=== PATIENT | female | born 1965 | race Caucasian/White ===

== ENCOUNTER 2020-05-20 10:22 | Outpatient (REF) | payer MEDICAID, SELFPAY | END 2020-05-20 10:23 | disposition home or self-care (01) | LOC: HO.LAB 10:22 | PROVIDERS: Visit Provider Internal Medicine | DX: Z20.822 Contact with and (suspected) exposure to COVID-19 (principal) | CPT/HCPCS: 36415; C9803; U0003; U0005 ==

== ENCOUNTER 2020-05-29 10:08 | Outpatient (REF) | payer MEDICAID, SELFPAY | END 2020-05-29 10:09 | disposition home or self-care (01) | LOC: HO.LAB 10:08 | PROVIDERS: Visit Provider Internal Medicine | DX: Z20.822 Contact with and (suspected) exposure to COVID-19 (principal) | CPT/HCPCS: 36415; C9803; U0003; U0005 ==

== ENCOUNTER 2020-07-16 09:00 | Outpatient (RCR) | payer MEDICAID, SELFPAY | END 2020-07-31 08:00 | disposition home or self-care (01) | LOC: HO.PT 09:00 | PROVIDERS: PCP Registered Nurse; Visit Provider Registered Nurse | DX: R42 Dizziness and giddiness (principal) | CPT/HCPCS: 95992; 97110; 97112; 97162; 97530; 97535 ==

== ENCOUNTER 2020-08-28 10:12 | Emergency (ER) | payer MEDICAID, SELFPAY ==
--- NOTE | 2020-08-28 | ECG_ITS ---
Test Reason : DIZZINESS Blood Pressure : / mmHG Vent. Rate : 100 BPM Atrial Rate : 100 BPM P-R Int : 118 ms QRS Dur : 076 ms QT Int : 320 ms P-R-T Axes : 052 001 -01 degrees QTc Int : 412 ms Normal sinus rhythm Normal ECG No previous ECGs available Referred By: Generic ED Physician Electronically Signed By:LG OG MD
[2020-08-28 11:03] VITALS: BP 132/105; PULSE 110; RESP 18; TEMP 36.6; O2SAT 100; BMI 31.3
[2020-08-28 12:00] VITALS: BP 116/83; PULSE 98; RESP 18; TEMP 36.6; O2SAT 100
--- NOTE | 2020-08-28 12:05 | ED_ITS ---
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 Patient states that the dizziness is triggered by position change. She states that the dizziness is worse when she lies down or if she looks up returns her head. She states she has associated nausea with no vomiting. She has also had a headache for the last 3 days. The headache starts in the septal area of her head and radiates to the right sabianism. The headache is a throbbing like sensation which is 7/10 at its worst. She has had similar headaches in the past. She has associated nausea but no vomiting. She has associated photophobia and phonophobia. She denies numbness or weakness. Related Data Previous Rx's Medication Instructions Recorded hydrochlorothiazide 25 mg PO DAILY 30 Days #30 tab 08/28/20 metoclopramide HCl [Reglan] 10 mg PO Q6H PRN #14 tab 08/28/20 Allergies Allergy/AdvReac Type Severity Reaction Status Date / Time No Known Allergies Allergy Verified 08/28/20 12:02 [facility] Past Medical History [facility] Narrative: Past medical history: Hypertension, hyperlipidemia, vertigo. Social history: She denies tobacco, alcohol and drug use. Social History Social History Alcohol intake: never Smoking Status: Never smoker Use of substances other than those prescribed or required for medical reasons: No Advance Directives: Yes Advance Directives Information Provided: Yes Advance Directives on File: No Physical Exam Vital Signs: Vital Signs: Last Vital Signs Temp 97.8 F 08/28/20 12:00 Pulse 80 08/28/20 13:22 Resp 16 08/28/20 13:22 BP 127/78 08/28/20 13:22 Pulse Ox 98 08/28/20 13:22 Body Mass Index 31.3 Const: General: cooperative Orientation/consciousness: oriented to person and oriented to place Limitations: no limitations HENMT: Head: Yes normal to inspection, Yes normocephalic and Yes atraumatic Ears: external ears normal General nose exam: Normal external nose present Face and sinus: Yes normal facial exam Mouth: Normal oral and palatal mucosa present Throat: Yes posterior oropharynx normal Eyes: Periorbital: periorbital findings normal Eyelids: Yes eyelids normal Conjunctivae: conjunctivae normal Sclerae: sclerae normal Corneas: corneas normal Pupils: Equal, round and reactive pupils present EOM: Nystagmus present Direct Ophthalmoscopy: normal light reflex Neck: Neck: Yes full ROM, Yes no lymphadenopathy, Yes no meningeal signs, Yes trachea midline and Yes supple Chest: Chest palpation & inspection: normal inspection of the chest and normal palpation of entire chest wall Resp: Effort & Inspection: normal respiratory effort and able to speak in complete sentences Auscultation: clear to auscultation bilaterally Cardio: Rate: regular rate Rhythm: regular rhythm Heart sounds: S1 normal heart sound present, S2 normal heart sound present and no murmurs GI: Inspection: Yes normal to inspection Palpation (GI): Soft to palpation, nontender, no guarding, not rigid and No hepatosplenomegaly present : General: Yes no CVA tenderness Back/Spine/Pelvis: Back: no CVA tenderness Cervical Spine: normal cervical lordosis Thoracic/Lumbar Spine: thoracic and lumbar spine normal to inspection Skin: Lesions: no lesions Rashes: no rashes Wounds: no wounds Neuro: General: oriented to person, oriented to place and no meningeal signs Cranial nerves: Yes CN's II-XII intact bilaterally, Yes Equal, round and reactive pupils present and Yes Nystagmus present Cognition (Neuro): normal cognition Motor exam (neuro): 5/5 motor strength present throughout Coordination: gshtuo-yv-hexm test normal and vloh-qz-zmux test normal Extrem: General: Yes normal to inspection and Yes full ROM Psych: Appearance: well kempt Mental Status: mental status grossly normal Speech and movement: Normal speech and movement present Affect: normal affect Attitude: cooperative Thought process: Normal thought process present Thought content: Normal thought content present Course Course Course Narrative: 54-year-old female with a history of vertigo who presents emergency department for evaluation of room spinning dizziness times 10 days. The patient also complains a right-sided headache. Patient has been taking meclizine for vertigo with no relief for symptoms. Vital signs revealed an elevated tachycardia 110 , elevated blood pressure of 132/105 otherwise was unremarkable. Physical examination revealed lateral nystagmus otherwise was unremarkable with a normal neurologic and cerebellar exam. Did order laboratory evaluation the patient. Patient's symptoms were treated with Toradol 30 mg IV, Reglan 10 mg IV and Benadryl 50 mg IV. 1510: The patient's laboratory evaluation was unremarkable. Twelve EKG reveals sinus tachycardia otherwise was unremarkable. The patient did get significant improvement with the above treatment. The patient dizziness is consistent with positional vertigo which is not responding to meclizine. Therefore, the patient will be started on hydrochlorothiazide 25 mg once a day for 30 days to treat her vertigo. She was also given headache regimen to include: Excedrin migraine 1 tablet, Benadryl 25 mg 2 tablets and Reglan 10 mg 1 tablet. She is to take this regimen every 6 hours as needed for headache, nausea and vomiting. She was given printed and verbal instructions and discharged home. MDM - Dizziness Lab Data Result diagrams: 08/28/20 12:05 08/28/20 13:21 Labs: Lab Results 08/28/20 08/28/20 08/28/20 Range/Units 12:05 12:05 12:05 WBC 5.7 (4.8-10.8) X10*3/uL RBC 4.65 (4.20-5.50) X10*6/uL Hgb 13.7 (12.0-16.0) g/dl Hct 41.6 (37-47) % MCV 89.5 (80-98) fL MCH 29.5 (27.0-33.0) pg MCHC 32.9 (31.0-35.0) g/dl RDW 12.4 (11.0-16.0) % Plt Count Not Reportable MPV Not Reportable Immature Gran % (Auto) 0.3 (0.0-0.4) % Neut % (Auto) 77.2 H (45-73) % Lymph % (Auto) 13.1 L (20-40) % Emanuel % (Auto) 8.6 (2-11) % Eos % (Auto) 0.5 (0-4) % Baso % (Auto) 0.3 (0-2) % Lymph # (Auto) 0.8 L (1.2-4.9) X10*3/uL Emanuel # (Auto) 0.5 (0.1-1.2) X10*3/uL Eos # (Auto) 0.0 (0.0-0.4) X10*3/uL Baso # (Auto) 0.0 (0.0-0.2) X10*3/uL Abs Immat Gran (auto) 0.02 (0.00-0.03) X10*3/uL Absolute Neuts (auto) 4.4 (2.0-8.3) X10*3/uL Absolute Nucleated RBC 0.000 (0.0-0.012) X10*3/uL Nucleated RBC % (auto) 0.0 (0.0-0.2) /100WBC Smear Tech's Comments VERIFIED Hold Blue Top SEE NOTE Sodium (135-145) mmol/L Potassium (3.3-5.1) mmol/L Chloride (96-108) mmol/L Carbon Dioxide (22-29) mmol/L Anion Gap (12-20) BUN (9-16) mg/dL Creatinine (0.5-1.4) mg/dL Estim Creat Clear Calc Estimated GFR Random Glucose (60-115) mg/dL Calcium (8.4-10.2) mg/dL Urine Color STRAW Urine Appearance CLEAR Urine pH 5.5 (5.0-8.0) Ur Specific [place] 1.010 (1.005-1.025) Urine Protein NEG (NEG-TRACE) MG/DL Urine Glucose (UA) NEG (NEG) MG/DL Urine Ketones NEG (NEG) MG/DL Urine Blood NEG (NEG) Urine Nitrite NEG (NEG) Ur Leukocyte Esterase NEG (NEG) 05/20/21 Range/Units 13:21 WBC (4.8-10.8) X10*3/uL RBC (4.20-5.50) X10*6/uL Hgb (12.0-16.0) g/dl Hct (37-47) % MCV (80-98) fL MCH (27.0-33.0) pg MCHC (31.0-35.0) g/dl RDW (11.0-16.0) % Plt Count MPV Immature Gran % (Auto) (0.0-0.4) % Neut % (Auto) (45-73) % Lymph % (Auto) (20-40) % Emanuel % (Auto) (2-11) % Eos % (Auto) (0-4) % Baso % (Auto) (0-2) % Lymph # (Auto) (1.2-4.9) X10*3/uL Emanuel # (Auto) (0.1-1.2) X10*3/uL Eos # (Auto) (0.0-0.4) X10*3/uL Baso # (Auto) (0.0-0.2) X10*3/uL Abs Immat Gran (auto) (0.00-0.03) X10*3/uL Absolute Neuts (auto) (2.0-8.3) X10*3/uL Absolute Nucleated RBC (0.0-0.012) X10*3/uL Nucleated RBC % (auto) (0.0-0.2) /100WBC Smear Tech's Comments Hold Blue Top Sodium 141 (135-145) mmol/L Potassium 3.8 (3.3-5.1) mmol/L Chloride 109 H (96-108) mmol/L Carbon Dioxide 23 (22-29) mmol/L Anion Gap 13 (12-20) BUN 15 (9-16) mg/dL Creatinine 0.78 (0.5-1.4) mg/dL Estim Creat Clear Calc 81.7 Estimated GFR > 60 Random Glucose 81 (60-115) mg/dL Calcium 9.2 (8.4-10.2) mg/dL Urine Color Urine Appearance Urine pH (5.0-8.0) Ur Specific [place] (1.005-1.025) Urine Protein (NEG-TRACE) MG/DL Urine Glucose (UA) (NEG) MG/DL Urine Ketones (NEG) MG/DL Urine Blood (NEG) Urine Nitrite (NEG) Ur Leukocyte Esterase (NEG) ECG Data Attestation: I personally reviewed and interpreted this ECG as follows: Interpretation: 1205: Sinus tachycardia with a rate of 100, normal MD interval, QRS and QTC intervals, inverted T-wave in lead [address] segment elevation or depression. No Q-waves. This is a normal EKG. No old EKG for comparison Discharge Plan Discharge Clinical Impression: Benign paroxysmal positional vertigo Qualifiers: Laterality: unspecified laterality Qualified Code(s): H81.10 - Benign p aroxysmal vertigo, unspecified ear Headache Qualifiers: Headache type: unspecified Headache chronicity pattern: acute headache Intractability: not intractable Qualified Code(s): R51.9 - Headache, unspecified Patient Disposition: Home, Self-Care Instructions: Acute Headache (ED), Benign Paroxysmal Positional Vertigo (ED) Additional Instructions: I am going to treat your vertigo with hydrochlorothiazide which is a water pill and high blood pressure pill that helps with vertigo. Take hydrochlorothiazide 25 mg pills, 1 pill in the morning for 30 days. You can continue to take your meclizine as needed for dizziness while you are taking the hydrochlorothiazide. For headache, nausea and vomiting I want you to take the following 3 medications together every 6 hours. Excedrin migraine, 1 pill orally Benadryl 25 mg, 2 pills orally Reglan (metoclopramide) 10 mg, 1 pill orally These medications will make you sleepy, lie down in a dark quiet room after take pain medications and this will help your headache and nausea go away. Follow-up with your doctor in 2 days. Please return to the emergency department if your symptoms get worse or if you develop any symptoms that are concerning to you. Prescriptions: New hydrochlorothiazide 25 mg tablet 25 mg PO DAILY 30 Days Qty: 30 RF: 0 metoclopramide HCl [Reglan] 10 mg tablet 10 mg PO Q6H PRN (Reason: nausea and vomiting) Qty: 14 RF: 0 Interventions: ED Discharge Assessment Last Done: 08/28/20 15:28 Discharge Date/Time: 08/28/20 15:29
[2020-08-28] MEDS: 0.9 % Sodium Chloride 1,000 ML 999 ML IV (12:17)
[2020-08-28] MEDS: Metoclopramide HCl 10 MG/2 ML VIAL IVPUSH (12:19)
[2020-08-28] MEDS: diphenhydrAMINE HCL 50 MG/ML VIAL IVPUSH (12:19)
[2020-08-28] MEDS: Ketorolac Tromethamine 30 MG/ML VIAL IVPUSH (12:19)
[2020-08-28 12:21] LABS: Basophils Percent Auto 0.3 % (0-2); Hemoglobin 13.7 g/dl (12.0-16.0); Imm Gran Abs Auto 0.02 X10*3/uL (0.00-0.03); Imm Gran Pct Auto 0.3 % (0.0-0.4); MANUAL DIFF FLAG SCAN; Mean Corpuscular Hemoglobin 29.5 pg (27.0-33.0); PLT CLUMP 1; SCAN SMEAR FLAG 1
[2020-08-28 12:23] LABS: Eosinophils Percent Auto 0.5 % (0-4); Hematocrit 41.6 % (37-47); Lymphocytes Absolute Auto 0.8 X10*3/uL (1.2-4.9); Lymphocytes Percent Auto 13.1 % (20-40); Mean Corpuscular HGB Conc 32.9 g/dl (31.0-35.0); Mean Corpuscular Volume 89.5 fL (80-98); Monocytes Absolute Auto 0.5 X10*3/uL (0.1-1.2); Monocytes Percent Auto 8.6 % (2-11); Neutrophils Absolute Auto 4.4 X10*3/uL (2.0-8.3); Neutrophils Percent Auto 77.2 % (45-73); Red Blood Count 4.65 X10*6/uL (4.20-5.50); Red Cell Distribution Width 12.4 % (11.0-16.0); White Blood Count 5.7 X10*3/uL (4.8-10.8)
[2020-08-28 12:25] LABS: Glucose Urine UA NEG (NEG); Leukocyte Esterase Urine NEG (NEG); Nitrite Urine NEG (NEG); PH 5.5 (5.0-8.0); Urine Blood NEG (NEG); Urine Ketones NEG (NEG); Urine Protein NEG (NEG-TRACE)
[2020-08-28 12:27] LABS: Appearance Urine CLEAR; Color Urine STRAW
[2020-08-28 13:00] LABS: SLIDE REVIEW VERIFIED
[2020-08-28 13:22] VITALS: BP 127/78; PULSE 80; RESP 16; O2SAT 98
[2020-08-28 13:54] LABS: Anion Gap 13 (12-20); Blood Urea Nitrogen 15 mg/dL (9-16); Calcium 9.2 mg/dL (8.4-10.2); Carbon Dioxide 23 mmol/L (22-29); Chloride 109 mmol/L (96-108); Creatinine Clr Calc Pharmacy 81.7; Estimated Glomerular Filt Rate > 60; Glucose Random 81 mg/dL (60-115); Potassium 3.8 mmol/L (3.3-5.1); Sodium 141 mmol/L (135-145)
== END 2020-08-28 15:29 | disposition home or self-care (01) ==
PROVIDERS: Emergency Provider Emergency Medicine Emergency Medical Services
DX: H81.10 Benign paroxysmal vertigo, unspecified ear (principal); R51.9 Headache, unspecified
CPT/HCPCS: 36415; 80048; 81003; 85025; 93005; 96361; 96374; 96375; 99284; 99285; J1200; J1885; J2765

== ENCOUNTER 2021-05-14 11:47 | Outpatient (REF) | payer MEDICAID, SELFPAY ==
--- NOTE | ~2021-05-14 | MM_ITS ---
EXAMINATION: MM SCREENING DIGITAL BREAST TOMOSYNTHESIS, BILATERAL CLINICAL INFORMATION: Screening. Asymptomatic. The lifetime risk of breast cancer based on the Tyrer-Cuzick Model is 8.2%. COMPARISON: Mammography: December 19, 2018 and studies dating back to July 14, 2013 TECHNIQUE: Digital breast tomosynthesis is performed in both the craniocaudal and mediolateral oblique views along with computer-aided detection (CAD). Synthesized 2D images are generated from the tomosynthesis. FINDINGS: There are scattered areas of fibroglandular density (ACR BI-RADS breast composition Category b). There are no significant masses, abnormal calcifications, or other abnormalities. MM/MM tomosynthesis screening BI IMPRESSION: There are no significant changes from prior study. ASSESSMENT: BI-RADS 1: Negative RECOMMENDATION: Routine annual mammography screening. This patient's information was entered into a reminder system with a target due date for their next mammogram.
== END 2021-05-14 11:48 | disposition home or self-care (01) ==
LOC: HO.MAMMO 11:47
PROVIDERS: PCP Nurse Practitioner Family; Visit Provider Nurse Practitioner Family
DX: Z12.31 Encounter for screening mammogram for malignant neoplasm of breast (principal)
CPT/HCPCS: 77063; 77067

== ENCOUNTER 2021-07-13 08:34 | Outpatient (REF) | payer MEDICAID, SELFPAY ==
--- NOTE | ~2021-07-13 | MR_ITS ---
EXAMINATION: MR BRAIN WITHOUT CONTRAST CLINICAL INFORMATION: Chronic imbalance. Vertigo. COMPARISON: None available. TECHNIQUE: MRI of the brain was obtained using routine sequences without contrast. FINDINGS: No focal restricted diffusion is demonstrated to suggest acute or subacute cerebral ischemia. No evidence of acute or chronic hemorrhagic products on heme-sensitive imaging. Normal parenchymal signal characteristics. The ventricles are normal in morphology and size. No abnormal mass effect. No midline shift. Normal appearance of the pituitary gland. Normal positioning of the cerebellar tonsils. Normal arterial and venous vascular flow voids are present. Normal, homogeneous marrow signal. Mild mucosal thickening of the paranasal sinuses. No signal abnormalities within the mastoids. MR/MR head/brain wo con IMPRESSION: 1. No acute intracranial abnormalities. 2. No MRI abnormalities to explain the patient's symptoms.
== END 2021-07-13 08:35 | disposition home or self-care (01) ==
LOC: HO.MRI 08:34
PROVIDERS: Visit Provider Nurse Practitioner Family
DX: R26.89 Other abnormalities of gait and mobility (principal); R42 Dizziness and giddiness
CPT/HCPCS: 70551

== ENCOUNTER 2021-12-17 10:16 | Emergency (ER) | payer MEDICAID, SELFPAY ==
[2021-12-17 10:36] VITALS: BP 138/75; PULSE 100; RESP 19; TEMP 36.6; O2SAT 100; BMI 28.3
--- NOTE | 2021-12-17 11:01 | ED_ITS ---
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 Patient states that her ear has been hurting for the last week. Patient states that she has not been swimming, has not traveled lately, and does not have diabetes. Patient denies any dizziness, lightheadedness, abdominal pain, nausea, vomiting, fever, chills, blurry vision, double vision, loss of vision, chest pain, difficulty breathing, shortness of breath, back pain, night sweats, pain with urination, increased urinary frequency, increased urinary urgency, blood in her urine or stool, syncope or a near syncopal episode, recent trauma or falls, bowel incontinence, bladder incontinence, bowel retention, bladder retention, or any other complaints at this time. Onset (ago): week(s) (1) Location: right (ear) Radiation: non-radiation Severity: mild Severity scale (1-10): 2 Pain Consistency: constant Relieving factors: none Exacerbating factors: none Associated symptoms: denies other symptoms Treatments prior to arrival: none Related Data Previous Rx's Medication Instructions Recorded hydrochlorothiazide 25 mg tablet 25 mg PO DAILY 30 days #30 tabs 08/28/20 metoclopramide HCl 10 mg tablet 10 mg PO Q6H PRN nausea and 08/28/20 (Reglan) vomiting #14 tabs fluconazole 150 mg tablet 150 mg PO Q3D 2 doses #2 tabs 12/17/21 (Diflucan) [id number] 3.5 4 drp otic (ear) right QID 10 days 12/17/21 mg-10,000 unit/mL-1 % ear #10 mL drops,susp Allergies Allergy/AdvReac Type Severity Reaction Status Date / Time No Known Allergies Allergy Verified 08/28/20 12:02 Review of Systems Constitutional: Constitutional: Reports no additional constitutional complaints, Denies chills, Denies fever(s) and Denies night sweats Eyes: Eyes: Reports no additional eye complaints, Denies blurry vision, Denies change in vision, Denies diplopia, Denies eye discharge, Denies loss of vision and Denies eye pain ENT: Denies dizziness Comments: right ear pain Cardiovascular: Cardiovascular: Reports no additional cardiovascular complaints, Denies chest pain, Denies lightheadedness, Denies Loss of Consciousness and Denies dyspnea Respiratory: Respiratory: Reports no additional respiratory complaints and Denies dyspnea Gastrointestinal: Gastrointestinal: Reports no additional gastrointestinal complaints, Denies abdominal pain, Denies melena, Denies hematochezia, Denies change in bowel habits and Denies change in stool character Genitourinary: Genitourinary: Denies hematuria, Denies urinary frequency, Denies dysuria, Denies urinary incontinence, Denies urinary hesitancy and Denies urinary urgency Musculoskeletal: Musculoskeletal: Reports no additional musculoskeletal complaints, Denies numbness and Denies tingling Neurologic: Denies dizziness, Denies loss of vision, Denies numbness and Denies tingling Psychiatric: Psychiatric: Reports no additional psychiatric complaints Endocrine: Endocrine: Reports no additional endocrine complaints Hematologic/Lymphatic: Hematologic/Lymphatic: Reports no additional hematologic/lymphatic complaints Allergic/Immunologic: Allergic/Immunologic: Reports no additional allergic/immunologic complaints [facility] Past Medical History Attestation statement: The following information was validated with the patient. Source: old records reviewed Social History Social History Alcohol intake: never Advance Directives: No Advance Directives Information Provided: No Physical Exam ED Vital Signs: Vital Signs - 24 hr 12/17/21 10:36 Temperature 98 F Pulse Rate 100 Respiratory Rate 19 Blood Pressure 138/75 Pulse Oximetry 100 Oxygen Delivery Method Room Air BMI result Body Mass Index 28.3 Const General: cooperative, no acute distress, alert and awake Nutritional Appearance: well nourished Orientation/consciousness: patient oriented x3 Limitations: no limitations [facility] Head: Yes normal to inspection and Yes atraumatic Ears: hearing grossly normal bilaterally and Abnormal EAC present otic discharge purulent on the right General nose exam: Normal external nose present, no nasal discharge noted and no epistaxis Face and sinus: Yes normal facial exam, No abrasion and No laceration Mouth: Normal oral and palatal mucosa present, no drooling and no muffled voice Eyes General: appearance normal, both eyes and all related structures Periorbital: periorbital findings normal Eyelids: Yes eyelids normal Conjunctivae: conjunctivae normal Pupils: Equal, round and reactive pupils present EOM: EOMs intact bilaterally Neck Neck: Yes normal visual inspection, Yes full ROM and Yes no lymphadenopathy Chest Chest palpation & inspection: normal inspection of the chest Resp Effort & Inspection: normal respiratory effort and able to speak in complete sentences Auscultation: clear to auscultation bilaterally Cardio Rate: regular rate Rhythm: regular rhythm GI Inspection: Yes normal to inspection Neuro General: patient oriented x3 and moves all extremities Cranial nerves: Yes Equal, round and reactive pupils present Cognition (Neuro): normal cognition Motor exam (neuro): 5/5 motor strength present throughout Sensory Exam: Normal double simultaneous stimulation for sensation Coordination: [id number] test normal Extrem General: Yes normal to inspection, Yes full ROM and Yes capillary refill normal Psych Appearance: grossly normal Mental Status: mental status grossly normal Affect: normal affect Attitude: cooperative Thought process: Normal thought process present Thought content: Normal thought content present Insight: Good insight present (Psych) Medical Decision Making MDM Narrative Medical decision making narrative: Patient is a 55 year old female presenting to the emergency department today with right ear pain. Patient's physical exam showed white discharge in her right ear canal with pain during inspection. The white discharge appeared somewhat fluffy in nature and I was some what concerned of a superimposed fungal infection. I explained my physical exam findings to the patient. I answered all questions asked by the patient. I sent in both antibiotics and antifungal medication for the patient. I stressed the importance of the patient taking her medication as prescribed. I stressed the importance of the patient following up with her primary care provider and an ENT. I stressed the importance of the patient returning to the emergency department immediately if her symptoms were to worsen or if she were to develop any dizziness, shortness of breath, difficulty breathing, chest pain, blurry vision, loss of vision, nausea, vomiting, abdominal pain, fever, chills, back pain, or any other complaints. Patient verbalized agreement and understanding with this treatment plan and discharge. Differential Diagnosis Differential Diagnosis: otitis externa Medical Records Medical records reviewed: Yes I reviewed the patient's medical records. Discharge Plan Discharge Clinical Impression: Otitis externa Patient Disposition: Home, Self-Care Instructions: Otitis Externa (ED) Additional Instructions: Follow up with your primary care provider and an ENT specialist. Return to the emergency department immediately if your symptoms worsen or if you develop any dizziness, shortness of breath, difficulty breathing, chest pain, blurry vision, loss of vision, nausea, vomiting, abdominal pain, fever, chills, back pain, or any other complaints. Zoltan un seguimiento con wang proveedor de atenci?n primaria y un otorrinolaring?logo. Regrese al departamento de emergencias de inmediato si hudson s?ntomas empeoran o si presenta mareos, falta de aire, dificultad para respirar, dolor de pecho, visi?n borrosa, p?rdida de la visi?n, n?useas, v?mitos, dolor abdominal, fiebre, escalofr?os, dolor de espalda o cualquier otras quejas. Prescriptions: New fluconazole [Diflucan] 150 mg tablet 150 mg PO Q3D Qty: 2 0RF pjkppjuv-illvmkqkr-IL 3.5-10,000-1 mg/mL-unit/mL-% drops,suspension 4 drp otic (ear) right QID 10 Days Qty: 10 0RF No Action hydrochlorothiazide 25 mg tablet 25 mg PO DAILY 30 Days Qty: 30 0RF Rx Instructions: Take for vertigo for 1 month metoclopramide HCl [Reglan] 10 mg tablet 10 mg PO Q6H PRN (Reason: nausea and vomiting) Qty: 14 0RF Referrals: Mary Cordoba [Primary Care Provider] - River Mahmood [Physician] - (Call to establish and follow up with an ENT specialist. Llame para establecer y jus seguimiento con un otorrinolaring?logo.) Interventions: ED Discharge Assessment Last Done: 12/17/21 11:24 Discharge Date/Time: 12/17/21 11:25 Print Language: [place]
== END 2021-12-17 11:25 | disposition home or self-care (01) ==
PROVIDERS: Emergency Provider Emergency Medicine Emergency Medical Services; PCP Nurse Practitioner Family
DX: H60.91 Unspecified otitis externa, right ear (principal); H92.01 Otalgia, right ear; Z79.899 Other long term (current) drug therapy
CPT/HCPCS: 99283

== ENCOUNTER 2022-12-01 19:00 | Outpatient (REF) | payer MEDICAID, SELFPAY ==
[2022-12-01 20:17] LABS: Influenza A PCR NEGATIVE (Negative); Influenza B PCR NEGATIVE (Negative); Resp Syncy Virus RNA Qual PCR NEGATIVE (Negative); SARS COV2 PCR INHOUSE NEGATIVE (Negative)
== END 2022-12-01 19:01 | disposition home or self-care (01) ==
LOC: HO.HHCL 19:00
PROVIDERS: Visit Provider Family Medicine
DX: J06.9 Acute upper respiratory infection, unspecified (principal)
CPT/HCPCS: 0241U

== ENCOUNTER 2024-02-02 09:01 | Outpatient (REF) | payer MEDICAID, SELFPAY ==
[2024-02-02 11:10] LABS: Hematocrit 44.6 % (37.0-47.0); Hemoglobin 14.6 g/dl (12.0-16.0)
[2024-02-02 11:38] LABS: Estimated Average Glucose 111 mg/dL; Hemoglobin A1C 117.2523 umol/L; Hemoglobin A1c % 5.5 % (<6.0); Total Hemoglobin (HGBA1C) 3162.1212 umol/L
[2024-02-02 11:43] LABS: Anion Gap 13 (12-20); Blood Urea Nitrogen 19 mg/dL (9-16); Calcium 10.1 mg/dL (8.4-10.2); Carbon Dioxide 27 mmol/L (22-29); Chloride 103 mmol/L (96-108); Cholesterol 228 mg/dL (<200); Estimated Glomerular Filt Rate > 60; Glucose Random 92 mg/dL (60-115); HDL Cholesterol 45 mg/dL (>40); LDL Cholesterol Calculated 162 mg/dL (<100); Potassium 3.2 mmol/L (3.3-5.1); Sodium 140 mmol/L (135-145); Triglycerides 105 mg/dL (<150)
[2024-02-02 11:49] LABS: Vitamin D 25-OH Total 63.1 ng/mL (>30)
[2024-02-02 12:13] LABS: Folate 5.3 ng/mL (> or = 4.0); Vitamin B12 353 pg/mL (200-900)
== END 2024-02-02 09:02 | disposition home or self-care (01) ==
LOC: HO.HHCL 09:01
PROVIDERS: Visit Provider Nurse Practitioner Primary Care
DX: R20.0 Anesthesia of skin (principal); R20.2 Paresthesia of skin; R79.89 Other specified abnormal findings of blood chemistry; Z13.1 Encounter for screening for diabetes mellitus; Z13.220 Encounter for screening for lipoid disorders; I10 Essential (primary) hypertension
CPT/HCPCS: 36415; 80048; 80061; 82306; 82607; 82746; 83036; 84443; 85014; 85018

== ENCOUNTER 2024-02-09 09:04 | Outpatient (REF) | payer MEDICAID, SELFPAY ==
[2024-02-09 11:36] LABS: Anion Gap 11 (12-20); Blood Urea Nitrogen 19 mg/dL (9-16); Calcium 10.4 mg/dL (8.4-10.2); Carbon Dioxide 28 mmol/L (22-29); Chloride 103 mmol/L (96-108); Estimated Glomerular Filt Rate > 60; Glucose Random 92 mg/dL (60-115); Potassium 3.1 mmol/L (3.3-5.1); Sodium 139 mmol/L (135-145)
== END 2024-02-09 09:05 | disposition home or self-care (01) ==
LOC: HO.HHCL 09:04
PROVIDERS: Visit Provider Student in an Organized Health Care Education/Training Program
DX: E87.6 Hypokalemia (principal)
CPT/HCPCS: 36415; 80048

== ENCOUNTER 2024-02-17 10:54 | Outpatient (REF) | payer MEDICAID, SELFPAY ==
[2024-02-17 13:53] LABS: Anion Gap 11 (12-20); Blood Urea Nitrogen 14 mg/dL (9-16); Calcium 9.4 mg/dL (8.4-10.2); Carbon Dioxide 28 mmol/L (22-29); Chloride 105 mmol/L (96-108); Estimated Glomerular Filt Rate > 60; Glucose Random 88 mg/dL (60-115); Potassium 3.7 mmol/L (3.3-5.1); Sodium 140 mmol/L (135-145)
== END 2024-02-17 10:55 | disposition home or self-care (01) ==
LOC: HO.HHCL 10:54
PROVIDERS: Visit Provider Nurse Practitioner Primary Care
DX: I10 Essential (primary) hypertension (principal)
CPT/HCPCS: 36415; 80048

== ENCOUNTER 2024-05-01 11:01 | Outpatient (REF) | payer MEDICAID, SELFPAY ==
--- OUTSIDE RECORDS SUMMARY | 2024-05-01 12:40 | XMS_ITS | Encounter Summary ---
Author Organization [employer] [facility] Address [address] [place] [address] 7[address] [place] [address] Care Team Providers Care History Instructor Name Role Phone Brenda Wise Primary Care Provider [phone] Reason for Referral * Imaging (Routine) - Closed Specialty Diagnoses / Procedures Referred By Jarek barrios Referred To Contact Radiology Diagnoses Encounter for screening mammogram for malignant neoplasm of breast Procedures BI Mammogram Screening Tomosynthesis Bilateral Brenda Wise FNP [address], [place] Phone: tel: fax: [facility] [address] [place] [address] Phone: tel: fax: Referral ID Status Reason Start Date Expiration Date Visits Re quested Visits Authorized [id number] Closed 04/09/2024 04/09/2025 1 1 * Consultation (Routine) - Closed Specialty Diagnoses / Procedures Referred By Jarek barrios Referred To Contact Optometry Diagnoses Wears glasses Brenda Wise FNP [address] [place] [address] Phone: tel: fax: [facility] OPTOMETRY [address] [place] [address] Phone: tel: fax: Referral ID Status Reason Start Date Expiration Date V isits Requested Visits Authorized [id number] Closed Consult and Treat 04/09/2024 04/09/2025 1 1 Encounter Details Date Type Department Care Team (Latest Contact Info) Description 04/09/2024 1:15 PM EST Office Visit [facility] MED & PED[facility] [address] [place] [address] Brenda Wise FNP [address] [place] [address] Vertigo (Primary Dx); Wears glasses; Screening for colon cancer; Encounter for screening mammogram for malignant neoplasm of breast; Healthcare maintenance; Hyperlipidemia, unspecified hyperlipidemia type; Primary hypertension Social History Tobacco Use Types Packs/Day Years Used Date Smoking Tobacco: Never Passive Smoke Exposure: Current Smokeless Tobacco: Never Alcohol Use Standard Drinks/Week Comments Never 0 (1 standard drink = 0.6 oz pur e alcohol) Depression Answer Date Recorded Patient Health Questionnaire-9 Score 6 04/09/2024 Patient Health Questionnaire-9 Score 6 04/09/2024 Last PHQ-9: Questionnaire Data Not on file 1 Housing Stability Answer Date Recorded What is your housing situation today? I have brigid rivera 04/09/[address] you li ve. Do you have problems with any of the following? None of the above 04/09/2024 Food Insecurity Answer Date Recorded Within the past 12 months, y ou worried that your food would run out before you got money to buy more: Never True 01/30/2024 Within the past 12 months,th e food you bought just didn't last and you didn't have enough money to get more: Never True Transportation Answer Date Recorded In the past 12 months, has l ack of transportation kept you from medical appts, meetings, work or from getting things needed for daily living? No 01/30/2024 Utilities Answer Date Recorded In the past 12 months, has t he electric, gas, oil or water company threatened to shut off services in your home? No 01/30/2024 Depression Answer Date Recorded Patient Health Questionnaire-2 Score 2 04/09/2024 Internet Access Answer Date Recorded Internet Access Q1 Yes 01/30/2024 Internet Access Q2 Not on file 01/30/2024 Comments Unknown Sex and Gender Information Value Date Recorded Sex Assigned at Female 02/08/2022 10:14 AM EDT Legal Sex Female 10:14 AM EDT Gender Identity Female 02/08/2022 10:14 AM EDT Sexual Orientation Straight 02/08/2022 10 :14 AM EDT documented as of this encounter Last Filed Vital Signs Vital Sign Reading Time Taken Comments Blood Pressure 139/87 04/09/2024 1:07 PM EST Pulse 100 04/09/2024 1:07 PM EST Temperature 36.5 ??C (97.7 ??F) 04/09/2024 1:07 PM ES T Respiratory Rate 26 04/09/2024 1:07 PM EST Oxygen Saturation 97% 04/09/2024 1:07 PM EST Inhaled Oxygen Concentration - - Weight 71.4 kg (157 lb 8 oz) 04/09/2024 1:07 PM EST Height 157.5 cm (5' 2 ) 04/09/2024 1:07 PM EST Body Mass Index 28.81 04/09/2024 1:07 PM EST documented in this encounter Patient Instructions * Patient Instructions* DL Godfrey - 04/09/2024 1:15 PM EST - Referral to Neurology will be placed documented in this encounter Progress Notes * DL Godfrey - 04/09/2024 1:15 PM EST Subjective: Karlene Guy is a 58 y.o. female who presents to the office for a transfer patient visit. Previous PCP Mary Cordoba APRN. Current concerns: Chronic dizziness, feeling off balance. Longstanding hx of vertigo. Previous trials include meclizine and vestibular rehab. Ms. Guy reports that neither were very helpful, but that hydrochlorothiazide does improve her symptoms. Reports that it was prescribed by the ED and she has continued over the past few years (unclear on who is currently prescribing). Associated symptoms: feeling off balance, numbness/tingling in BUE and BLE. Also reports that certain movements of her neck can elicit symptoms of dizziness as well as numbness/tingling in BUE. [facility]. Consider Neuro referral pending results. Patient Active Problem List Diagnosis Hyperlipidemia Primary hypertension Vertigo Moderate episode of recurrent major depressive disorder (CMS/HCC) LOTTIE (generalized anxiety disorder) Healthcare maintenance Past Surgical History: Procedure Laterality Date CHOLECYSTECTOMY Family History Problem Relation Alzheimer's disease Mother Hypertension Father Heart attack Father Autism Son Alzheimer's disease Mother's Sister Breast cancer Father's Sister Liver cancer Paternal Grandfather Social History Substance use: -alcohol: none -tobacco: none -opioids: none Contraception: post-menopausal Mental health: denies SI/Hi/thoughts of self harm No LMP recorded (lmp unknown). No Known Allergies Review of Systems Constitutional: Negative for activity change, appetite change and fever. Respiratory: Negative for cough and wheezing. Cardiovascular: Negative for chest pain and palpitations. Gastrointestinal: Negative for abdominal pain, constipation, diarrhea and vomiting. Genitourinary: Negative for difficulty urinating. Neurological: Positive for dizziness and numbness. Negative for facial asymmetry, speech difficulty, weakness and headaches. Psychiatric/Behavioral: Negative for suicidal ideas. Visit Vitals BP 139/87 (BP Location: Left arm, Patient Position: Sitting, BP Cuff Size: Adult) Pulse 100 Temp 97.7 ??F (36.5 ??C) (Oral) Resp 26 Ht 5' 2 (1.575 m) Wt 157 lb 8 oz (71.4 kg) LMP (LMP Unknown) SpO2 97% BMI 28.81 kg/m?? Smoking Status Never BSA 1.77 m?? Physical Exam Constitutional: Appearance: Normal appearance. HENT: Head: Atraumatic. Right Ear: External ear normal. Left Ear: External ear normal. Nose: No congestion. Eyes: Extraocular Movements: Extraocular movements intact. Cardiovascular: Rate and Rhythm: Normal rate and regular rhythm. Pulmonary: Effort: Pulmonary effort is normal. Breath sounds: Normal breath sounds. Neurological: General: No focal deficit present. Mental Status: She is alert and oriented to person, place, and time. Psychiatric: Mood and Affect: Mood normal. Behavior: Behavior normal. Problem List Items Addressed This Visit Circulatory Primary hypertension Current Assessment & Plan - Reports hydrochlorothiazide rx from outside prescriber, encouraged to bring in rx bottle next appt Other Hyperlipidemia Overview Lab Results Component Value Date CHOL 228 (H) 02/02/2024 TRIG 105 02/02/2024 HDL 45 02/02/2024 LDLCHOLCAL 162 (H) 02/02/2024 -continue lifestyle modification -rosuvastatin 5mg nightly Current Assessment & Plan -Will switch from atorvastatin to rosuvastatin. Reviewed med safety and SE. Relevant Medications rosuvastatin (Crestor) 5 MG tablet Vertigo - Primary Current Assessment & Plan - Chronic vertigo associated with additional symptoms including feeling off balance, numbness and tingling in BUE - aggravated by movement of neck. Previous head imaging completed. Will request. Nextsteps pending imaging results. May consider MRI brain and c-spine to r/o structural abnormalities or lesions such as MS. Discussed consideration of Neuro referral - ED precautions Healthcare maintenance Overview Mammo: BIRADS 1 in May 2021. Order re-sent on 04/09/24 Pap: NILM, HPV neg on 12/02/21 Colonoscopy: Declines colonoscopy but in agreement with [facility]. Order placed 04/09/24. Optometry: referral to [facility] Eye [facility] 04/09/24. List of local vision centers provided Other Visit Diagnoses Wears glasses Relevant Orders Referral to [facility] Screening for colon cancer Relevant Orders Cologuard?? colon cancer screening Encounter for screening mammogram for malignant neoplasm of breast Relevant Orders BI Mammogram Screening Tomosynthesis Bilateral Follow up: 3 months, sooner as needed. Current Outpatient Medications Medication Sig Dispense Refill cholecalciferol (Vitamin D-3) 50 MCG (1999 UT) capsule Take 1 capsule by mouth in the morning. cyclobenzaprine (Flexeril) 5 MG tablet Take 1 tab at bedtime as needed for neck pain/muscle spasm 15 tablet 0 hydrocortisone 1 % cream apply by topical route 2 times every day a thin layer to the affected area(s) on foot for 2 weeks rosuvastatin (Crestor) 5 MG tablet Take 1 tablet (5 mg) by mouth at bedtime. (Cholesterol) 90 tablet 1 No current facility-administered medications for this visit. Immunization History Administered Date(s) Administered Hep B, adult 05/08/2003 Influenza, IIV3, injectable 01/08/1999, 02/24/2001 Influenza, Split (incl. purified surface antigen) 08/24/2013 Influenza, seasonal, injectable, preservative free 01/05/2024 Moderna Covid-19 Vaccine 12+ 07/30/2020, 08/27/2020, 05/28/2021 TD (adult), 2 Lf tetanus toxoid, preservative free, adsorbed 12/10/1992, 01/30/2024 Tdap 08/31/2010 documented in this encounter Miscellaneous Notes * Assessment & Plan Note - DL Godfrey - 04/12/2024 8:19 PM ESTAssociated Problem(s): Vertigo - Chronic vertigo associated with additional symptoms including feeling off balance, numbness and tingling in BUE - aggravated by movement of neck. Previous head imaging completed. Will request. Nextsteps pending imaging results. May consider MRI brain and c-spine to r/o structural abnormalities or lesions such as MS. Discussed consideration of Neuro referral - ED precautions * Assessment & Plan Note - DL Godfrey - 04/12/2024 8:11 PM ESTAssociated Problem(s): Primary hypertension - Reports hydrochlorothiazide rx from outside prescriber, encouraged to bring in rx bottle next appt * Assessment & Plan Note - DL Godfrey - 04/12/2024 8:10 PM ESTAssociated Problem(s): Hyperlipidemia -Will switch from atorvastatin to rosuvastatin. Reviewed med safety and SE. documented in this encounter Plan of Treatment Upcoming Encounters Date Type Department Care Team (Late st Contact Info) Description 09/06/2024 1:00 PM EDT Office Visit [facility] OPTOMETRY [address] [place] [address] Cathy Dempsey, OD [address] [place] [address] Scheduled Orders Name Type Priority Associated Diagnoses Orde r Schedule Cologuard?? colon cancer screening Lab Routine Screening for colon cancer Ordered: 04/09/2024 BI Mammogram Screening Tomosynthesis Bilateral Imaging Routine Encounter for screening mammogram for malignant neoplasm of breast Expected: 04/09/2024, Expires: 06/08/2025 Scheduled Referrals Name Type Priority Associated Diagnoses Orde r Schedule Referral to [facility] Eye Care Outpatient Referral Routine Wears glasses Expected: 04/09/2024 (Approximate), Expires: 04/09/2025 documented as of this encounter Visit Diagnoses Diagnosis Vertigo- Primary Dizziness and giddiness Wears glasses Other specified conditions influencing health status Screening for colon cancer Special screening for malignant neoplasms, colon Encounter for screening mammogram for malignant neoplasm of breast Healthcare maintenance Hyperlipidemia, unspecified hyperlipidemia type Primary hypertension Unspecified essential hypertension documented in this encounter Additional Health Concerns Assessment Noted Time PHQ-9 Depression Total Score: 6 04/09/20 24 1:13 PM EST documented as of this encounter Care Teams History Instructor Relationship Specialty Start Date End Date Brenda Wise FNP [address] [place] [address] PCP - General Family Medicine 12/07/21 documented as of this encounter
--- OUTSIDE RECORDS SUMMARY | 2024-05-01 12:40 | XMS_ITS | Encounter Summary ---
Author Organization [employer] Address [address] [place] [address] Care Team Providers Care Barber Tool Sharpener Name Role Phone Brenda Wise Primary Care Provider [phone] Reason for Visit * Reason Comments Pre-visit Planning SDOH was completed o n 01/30/2024 Encounter Details Date Type Department Care Team ([facility] st Contact Info) Description 04/02/2024 Patient Outreach [facility] MED [facility] PEDS [address] [place], [place] [phone] Brenda Wise FNP [address] [place], [place] [phone] Pre-visit Planning (SDOH was completed on 01/30/2024) Social History Tobacco Use Types Packs/Day Years Used Date Smoking Tobacco: Never Passive Smoke Exposure: Current Smokeless Tobacco: Never Alcohol Use Standard Drinks/Week Comments Never 0 (1 standard drink = 0.6 oz pur e alcohol) Depression Answer Date Recorded Patient Health Questionnaire-9 Score 17 02/23/2024 Patient Health Questionnaire-9 Score 17 02/23/2024 Last PHQ-9: Questionnaire Data Not on file 1 04/24/2023 Housing Stability Answer Date Recorded What is your housing situation today? I have brigid rivera 01/30/[address] you li ve. Do you have problems with any of the following? I am not sure 01/30/2024 Food Insecurity Answer Date Recorded Within the [...] Answer Date Recorded Patient Health Questionnaire-2 Score 6 02/23/2024 Internet Access Answer Date Recorded Internet Access Q1 Yes 01/30/2024 Internet Access Q2 Not on file 01/30/2024 Comments Unknown Sex and Gender Information Value Date Recorded Sex Assigned at Female 02/08/2022 10:14 AM EDT Legal Sex Female 10:14 AM EDT Gender Identity Female 02/08/2022 10:14 AM EDT Sexual Orientation Straight 02/08/2022 10 :14 AM EDT documented as of this encounter Progress Notes * Shy Guzman - 04/02/2024 1:16 PM EST Shy Riley placed successful outbound call to patient for pre-visit planning. Patient name and confirmed. Patient confirms appt date and time, and has transportation arrangements. Biggest concernfor appointment at this time is neck muscle spasms and ear pain. Appropriate screenings completed in anticipation of appointment CC. documented in this encounter Plan of Treatment Upcoming Encounters Date Type Department Care Team (Late st Contact Info) Description 09/06/2024 1:00 PM EDT Office Visit [facility] OPTOMETRY [address] [place] [address] Ke, Cathy, OD [address] [place] [address] documented as of this encounter Visit Diagnoses Not on filedocumented in this encounter Additional Health Concerns Assessment Noted Time PHQ-9 Depression Total Score: 17 024 3:22 PM EST documented as of this encounter Care Teams Barber Tool Sharpener Relationship Specialty Start Date End Date Brenda Wise FNP [address] [place] [address] PCP - General Family Medicine 12/07/21 documented as of this encounter
--- OUTSIDE RECORDS SUMMARY | 2024-05-01 12:40 | XMS_ITS | Encounter Summary ---
Author Organization [employer] Address [address] [place] [address] Care Team Providers Care Searchlight Operator Name Role Phone Brenda Wise DL Primary Care Provider [phone] Reason for Visit * Reason Onset Date Comments Chart Prep 04/09/2024 Encounter Details Date Type Department Care Team ([facility] st Contact Info) Description 04/09/2024 Telephone [facility] MED & PEDS [address] [place], [place] [phone] Marta Malcolm MA Chart Prep Social History Tobacco Use Types Packs/Day Years [...] AM EDT documented as of this encounter Miscellaneous Notes * Telephone Encounter - Marta Sweeney MA - 04/09/2024 11:46 AM EST Chart Prep Labs: done Images: done Vaccines due: yes Referrals: pending appt Screenings: colonoscopy , mammogram , STI screening, Hep C Overdue care gaps: Sbirt documented in this encounter Plan of Treatment Upcoming Encounters Date Type Department Care Team (Late st Contact Info) Description 09/06/2024 1:00 PM EDT Office Visit [facility] OPTOMETRY [address] [place] [address] Cathy Dempsey, OD [address] [place] [address] documented as of this encounter Visit Diagnoses Not on filedocumented in this encounter Additional Health Concerns Assessment Noted Time PHQ-9 Depression Total Score: 6 04/09/20 24 1:13 PM EST documented as of this encounter Care Teams Searchlight Operator Relationship Specialty Start Date End Date Brenda Wise FNP [address] [place] [address] PCP - General Family Medicine 12/07/21 documented as of this encounter
--- OUTSIDE RECORDS SUMMARY | 2024-05-01 12:40 | XMS_ITS | Encounter Summary ---
Author Organization [employer] Address [address] [place] [address] Care Team Providers Care Shredder Operator Name Role Phone Brenda Wise DL Primary Care Provider [phone] Encounter Details Date Type Department Care Team (Latest Contact Info) Description 04/09/2024 Travel Social History Tobacco Use Types Packs/Day Years [...] AM EDT documented as of this encounter Plan of Treatment Upcoming Encounters Date Type Department Care Team (Late st Contact Info) Description 09/06/2024 1:00 PM EDT Office Visit [facility] OPTOMETRY [address] [place] [address] KeCathy flood, OD [address] [place] [address] documented as of this encounter Visit Diagnoses Not on filedocumented in this encounter Additional Health Concerns Assessment Noted Time PHQ-9 Depression Total Score: 6 04/09/20 24 1:13 PM EST documented as of this encounter Care Teams Shredder Operator Relationship Specialty Start Date End Date Brenda Wise FNP [address] [place] [address] PCP - General Family Medicine 12/07/21 documented as of this encounter
--- OUTSIDE RECORDS SUMMARY | 2024-05-01 12:40 | XMS_ITS | Encounter Summary ---
Author Organization [employer] [facility] Address [address] [facility] [address] [place] [address] Care Team Providers Care Adult Family Home Program Manager Name Role Phone Brenda Wise Primary Care Provider [phone] Reason for Visit * Reason Comments Med Refill Encounter Details Date Type Department Care Team (Late Contact Info) Description 04/19/2023 Refill [facility] MED[facility] [address] [place] [address] Brenda Wise FNP [address] [place] [address] Social History Tobacco Use Types Packs/Day Years Used Date Smoking Tobacco: Former Cigarettes Passive Smoke Exposure: Current Smokeless Tobacco: Never Alcohol Use Standard Drinks/Week Comments Never 0 (1 standard drink = 0.6 oz pur e alcohol) Comments Unknown Sex and Gender Information Value Date Recorded Sex Assigned at Female 02/08/2022 10:14 AM EDT Legal Sex Female 10:14 AM EDT Gender Identity Female 02/08/2022 10:14 AM EDT Sexual Orientation Straight 02/08/2022 10 :14 AM EDT documented as of this encounter Plan of Treatment Upcoming Encounters Date Type Department Care Team (Late Contact Info) Description 09/06/2024 1:00 PM EDT Office Visit [facility] OPTOMETRY [address] [place] [address] Ke, Cathy, OD [address] [place] [address] documented as of this encounter Visit Diagnoses Not on filedocumented in this encounter Care Teams Adult Family Home Program Manager Relationship Specialty Start Date End Date Brenda Wise FNP [address] [place] [address] PCP - General Family Medicine 12/07/21 documented as of this encounter
--- OUTSIDE RECORDS SUMMARY | 2024-05-01 12:40 | XMS_ITS | Encounter Summary ---
Author Organization [employer] Address [address] [facility] [address] [place] [address] Care Team Providers Care Grounds Restoration Specialist Name Role Phone Brenda Wise Primary Care Provider [phone] Reason for Visit * Reason Onset Date Comments triage 05/24/2022 Encounter Details Date Type Department Care Team ([facility] st Contact Info) Description 05/24/2022 Telephone [facility] MEDICINE [address] [place] [address] Brenda Wise FNP [address] [place] [address] triage Social History Tobacco Use Types Packs/Day Years Used Date Smoking Tobacco: Never Assessed Comments Unknown Sex and Gender Information Value Date Recorded Sex Assigned at Female 02/08/2022 10:14 AM EDT Legal Sex Female 10:14 AM EDT Gender Identity Female 02/08/2022 10:14 AM EDT Sexual Orientation Straight 02/08/2022 10 :14 AM EDT COVID-19 Exposure Response Date Recorded In the last 10 days, have yo u been in contact with someone who was confirmed or suspected to have Coronavirus/COVID-19? Unable to assess 05/26/2022 10:57 AM EST documented as of this encounter Miscellaneous Notes * Telephone Encounter - Alissa Morgan RN - 05/24/2022 4:27 PM EST Call returned to patient for triage. No answer LVM to return call to [facility] triage line. * Telephone Encounter - Geovanni Guzman - 05/24/2022 11:58 AM EST Symptom: Earache Outcome: Schedule an urgent appointment (within 1 hour) or talk to a nurse or provider soon Reason: Severe pain now The caller accepted this outcome speaks pashto documented in this encounter Plan of Treatment Upcoming Encounters Date Type Department Care Team (Late st Contact Info) Description 09/06/2024 1:00 PM EDT Office Visit [facility] OPTOMETRY [address] [place] [address] Cathy Dempsey, OD [address] [place] [address] documented as of this encounter Visit Diagnoses Not on filedocumented in this encounter Care Teams Grounds Restoration Specialist Relationship Specialty Start Date End Date Brenda Wise FNP [address] [place] [address] PCP - General Family Medicine 12/07/21 documented as of this encounter
--- OUTSIDE RECORDS SUMMARY | 2024-05-01 12:40 | XMS_ITS | Encounter Summary ---
Author Organization [employer] Address [address] [facility] [address] [place] [address] Care Team Providers Care Sr. Social Media & Mobile Manager Name Role Phone ArvindBrenda skinner DL Primary Care Provider [phone] Encounter Details Date Type Department Care Team ([facility] st Contact Info) Description 04/12/2024 Orders Only [place] [facility] [address] [place], [place] [phone] Provider, MD Trav Social History Tobacco Use Types Packs/Day Years [...] Description 09/06/2024 1:00 PM EDT Office Visit [facility] OPTOMETRY [address] [place] [address] Ke, Cathy, OD [address] [place] [address] documented as of this encounter Procedures Procedure Name Priority Date/Time Associated Diagnosis Comments HM MAMMOGRAPHY Routine 05/14/2021 11:34 AM EST documented in this encounter Results * Hm Mammography (05/14/2021 11:34 AM EST) Anatomical Region Laterality Modality Other Historical Provider HEALTH MAINTENANCE Final Result documented in this encounter Visit Diagnoses Not on filedocumented in this encounter Additional Health Concerns Assessment Noted Time PHQ-9 Depression Total Score: 6 04/09/20 24 1:13 PM EST documented as of this encounter Care Teams Sr. Social Media & Mobile Manager Relationship Specialty Start Date End Date Brenda Wise FNP [address] [place] [address] PCP - General Family Medicine 12/07/21 documented as of this encounter
== END 2024-05-01 11:02 | disposition home or self-care (01) ==
LOC: HO.MAMMO 11:01
PROVIDERS: PCP Registered Nurse; Visit Provider Registered Nurse
DX: Z12.31 Encounter for screening mammogram for malignant neoplasm of breast (principal)
CPT/HCPCS: 77063; 77067

== ENCOUNTER → 2024-05-01 11:15 | Outpatient (BNV) | payer MEDICAID, SELFPAY | PROVIDERS: PCP Registered Nurse; Visit Provider Internal Medicine | DX: Z12.31 Encounter for screening mammogram for malignant neoplasm of breast (principal) | CPT/HCPCS: 77063; 77067 ==

== ENCOUNTER 2024-12-27 08:48 | Outpatient (REF) | payer MEDICAID, SELFPAY ==
--- OUTSIDE RECORDS SUMMARY | 2024-12-27 10:06 | XMS_ITS | Encounter Summary ---
Author Organization [employer] Address [address] [facility] 7t [place] [address] Care Team Providers Care Clinical Data Manager Name Role Phone Brenda Wise Primary Care Provider [phone] Reason for Visit * Reason Onset Date Comments triage 05/24/2022 Encounter Details Date Type Department Care Team ([facility] st Contact Info) Description 05/24/2022 Telephone [facility] MEDICINE [address] [place] [address] Brenda Wise FNP [address] [place] [address] triage Social History Tobacco Use Types Packs/Day [...] No answer LVM to return call to [facility] triage line. * Telephone Encounter - Geovanni Guzman - 05/24/2022 11:58 AM EST Symptom: Earache Outcome: Schedule an urgent appointment (within 1 hour) or talk to a nurse or provider soon Reason: Severe pain now The caller accepted this outcome speaks moroccan documented in this encounter Plan of Treatment Not on file documented as of this encounter Visit Diagnoses Not on filedocumented in this encounter Care Teams Clinical Data Manager Relationship Specialty Start Date End Date Brenda Wise FNP [address] [place] [id number] PCP - General Family Medicine 12/07/21 documented as of this encounter
--- OUTSIDE RECORDS SUMMARY | 2024-12-27 10:06 | XMS_ITS | Encounter Summary ---
Author Organization [employer] Address [address] [facility] [address] [place] [address] Care Team Providers Care Engineering Coordinator Name Role Phone Brenda Wise Primary Care Provider [phone] Reason for Visit * Reason Comments Med Refill Encounter Details Date Type Department Care Team ([facility] st Contact Info) Description 04/19/2023 Refill [facility] MEDICINE [address] [place] [address] Brenda Wise FNP [address] [place] [address] Social History Tobacco Use Types Packs/Day Years [...] as of this encounter Plan of Treatment Not on file documented as of this encounter Visit Diagnoses Not on filedocumented in this encounter Care Teams Engineering Coordinator Relationship Specialty Start Date End Date Brenda Wise FNP [address] [place] [address] PCP - General Family Medicine 12/07/21 documented as of this encounter
--- OUTSIDE RECORDS SUMMARY | 2024-12-27 10:06 | XMS_ITS | Clinical Summary ---
Author Organization [employer] Address [address] [facility] 7t [place] [address] Care Team Providers Care Meat Slicer Name Role Phone Brenda Wise Primary Care Provider [phone] Allergies No known active allergies Medications * This document contains information received from the source organization and may not represent a complete record from that organization. cholecalciferol (Vitamin D-3) 50 MCG (1999) capsule Take 1 capsule by mouth in the morning. 06/24/19 21 Active rosuvastatin (Crestor) 5 MG tabletIndications :Hyperlipidemia, unspecified hyperlipidemia type TAKE 1 TABLET BY MOUTH AT BEDTIME 90 tablet 1 10/09/19 25 Active Diclofenac Sodium 1 % gelIndications:Ne ck pain Apply thin layer by topical route (quantity as directed on package insert) to affected area of pain 3 times daily as needed. 50 g 3 12/22/19 25 Active lidocaine (Lidoderm) 5 % patchIndications: Neck pain Apply 1 patch topically if needed each day for moderate pain. Remove & discard patch within 12 hours or as directed by provider. 30 patch 3 12/22/19 25 2024 Active clotrimazole (Lotrimin) 1 % creamIndications: Rash Apply topically 2 times daily for 14 days. 30 g 12/22/19 25 2024 Active hydrocortisone 2.5 % creamIndications: Rash Apply topically 2 times daily for 14 days. 15 g 12/22/19 25 Active hydroCHLOROthiazi de 12.5 MG tabletIndications :Primary hypertension Take 12.5 mg by mouth Once per day. Active hydrocortisone 1 % cream apply by topical route 2 times every day a thin layer to the affected area(s) on foot for 2 weeks 12/03/19 22 2024 Discontinued(T herapy completed) cyclobenzaprine (Flexeril) 5 MG tabletIndications :Neck pain Take 1 tab at bedtime as needed for neck pain/muscle spasm 15 tablet 01/30/20 24 2024 Discontinued(T herapy completed) hydroCHLOROthiazi de (HYDRODiuril) 25 MG tabletIndications :Primary hypertension Take 1 tablet (25 mg) by mouth Once per day. 90 tablet 1 06/01/19 25 2024 Discontinued hydroCHLOROthiazi de (HYDRODiuril) 25 MG tabletIndications :Primary hypertension TAKE 1 TABLET (25 MG) BY MOUTH ONCE PER DAY. 90 tablet 1 12/01/19 25 2024 Discontinued(D ose adjustment) Active Problems Problem Noted Date Diagnosed Date Healthcare maintenance 04/12/2024 Overview (12/23/2024): Mammo: BIRADS 1 on 05/01/24 Pap: NILM, HPV neg on 12/02/21 Colonoscopy: Declines colonoscopy but in agreement with Cologuard. Order placed 04/09/24. Optometry: [facility] (09/06/24 consult) Assessment & Plan (12/23/2024 1:50 PM EDT): Encouraged to complete Cologuard, number given for product picker and to call company with any questions Routine health maintenance discussed, including laboratory monitoring and screening. Ordered routine laboratory tests, including cholesterol and other standard panels. Discussed HIV and syphilis screening; patient declined due to lack of risk factors. Follow-up scheduled in 4 months or sooner if needed. Moderate episode of recurrent major depressive d isorder 02/23/2024 Assessment & Plan (02/23/2024 3:38 PM EST): PROGRESS NOTE: ID: Karlene is a 58 y.o. Unknown straight-identified cis-female with MH services including OP Psychotherapy No previous hx of MH dx or sx who presents for Anxiety and Depression During IBH Consult Karlene presenting with depressed mood, loss of interests/pleasure , sense of isolation/loneliness , change in appetite or weight reduce appetite, changes in sleep difficulty falling asleep and difficulty staying asleep , psychomotor retardation, fatigue/loss of energy, worthlessness, difficulty concentrating and excessive worry/anxiety, difficulty controlling worry, and anxiety/worry associated to restlessness and/or feeling keyed-up/On edge , easily fatigued , difficulty concentrating and/or mind going blank , muscle tension , and sleep disturbance difficulty falling asleep and difficulty staying asleep ; for a period of 18+ mo, for most or all symptoms in the context of concern about daughter's mental health, lack of services and treatment, lack of coping skills to manage her emotions. PLAN: New/Additional Services needed Off-site services for Ptn will engage in services with [facility] Integration Plan External OP therapy referral and ptn will return intake package to [facility] tomorrow to open case and obtain first appt. Patient Self Plan Patient to utilize skills provided in intervention , Patient to reach out to [facility] team as needed, and Patient to engage in OP therapy LOTTIE (generalized anxiety disorder) 02/23/2024 Dizziness 10/13/2022 Assessment & Plan (12/23/2024 1:49 PM EDT): - Dizziness persists despite previous interventions (meclizine, slow changes in position, well controlled BP, and vestibular rehab). Neurology referral planned for further evaluation. - Prior MR head/brain w/o contrast 07/13/21 - ordered d/t chronic imbalance, vertigo. Impression: No acute intracranial abnormalities. No MRI abnormalities to explain the patient's symptoms. - Referred to neurology for further assessment. F/up precautions reviewed Assessment & Plan (04/12/2024 8:20 PM EST): - Chronic vertigo associated with additional symptoms including feeling off balance, numbness and tingling in BUE - aggravated by movement of neck. Previous head imaging completed. Will request. Next steps pending imaging results. May consider MRI brain and c-spine to r/o structural abnormalities or lesions such as MS. Discussed consideration of Neuro referral - ED precautions Primary hypertension 04/07/2021 Assessment & Plan (12/23/2024 1:35 PM EDT): - Well controlled - Cont hydrochlorothiazide 12.5mg daily Assessment & Plan (04/12/2024 8:11 PM EST): - Reports hydrochlorothiazide rx from outside prescriber, encouraged to bring in rx bottle next appt Hyperlipidemia 11/14/2014 Overview (04/12/2024): Lab Results Component Value Date CHOL 228 (H) 02/02/2024 TRIG 105 02/02/2024 HDL 45 02/02/2024 LDLCHOLCAL 162 (H) 02/02/2024 -continue lifestyle modification -rosuvastatin 5mg nightly Assessment & Plan (04/12/2024 8:10 PM EST): -Will switch from atorvastatin to rosuvastatin. Reviewed med safety and SE. Encounters Date Type Department Care Team Description 12/21/2024 11:00 AM EDT Office Visit [facility] [address] [place] [address] Brenda Wise FNP Dizziness (Primary Dx); Healthcare maintenance; Rash; Dietary counseling; Exercise counseling; Primary hypertension; Neck pain 12/21/2024 Travel 12/20/2024 Telephone [facility] [address] [place] [address] Brenda Wise FNP chart prep 11/30/2024 Refill [facility] [address] [place] [address] Brenda Wise FNP Primary hypertension 10/08/2024 Outside Procedure [facility] [address] [place] [address] Catracho Dempseyn, OD Presbyopia (Primary Dx) 10/05/2024 10:15 AM EDT Office Visit [facility] [address] [place] [address] Catracho Dempseyn, OD Regular astigmatism of right eye (Primary Dx) 10/05/2024 Refill [facility] [address] [place] [address] Phalen, Brenda, EXECUTIVE ASSOCIATE Hyperlipidemia, unspecified hyperlipidemia type from Last 3 Months Immunizations Immunization Administration Dates Next Due Hep B, adult 05/08/2003 Influenza, IIV3, injectable 02/24/2001, 9 Influenza, Split (incl. purified surface antigen ) 08/24/2013 Influenza, seasonal, injectable, preservative fr ee 01/05/2024 TD (adult), 2 Lf tetanus tox oid, preservative free, adsorbed 01/30/2024,12/10/1992 Tdap 08/31/2010 Family History Medical History Relation Name Comments Heart attack Father Hypertension Father Breast cancer Father's Sister Alzheimer's disease Mother Alzheimer's disease Mother's Sister Liver cancer Paternal Grandfather Autism Son Relation Name Status Comments Father Father's Sister Mother Mother's Sister Paternal Grandfather Son Social History Tobacco Use Types Packs/Day Years [...] Orientation Straight 02/08/2022 10 :14 AM EDT Last Filed Vital Signs Vital Sign Reading Time Taken Comments Blood Pressure 128/88 12/21/2024 11:39 AM EDT Pulse 84 12/21/2024 11:39 AM EDT Temperature 36.3 C (97.4 F) 12/21/2024 11:39 AM EDT Respiratory Rate 20 12/21/2024 11:39 AM EDT Oxygen Saturation 97% 04/09/2024 1:07 PM EST Inhaled Oxygen Concentration - - Weight 69.9 kg (154 lb) 12/21/2024 11:39 AM EDT Height 157.5 cm (5' 2 ) 12/21/2024 11:39 AM EDT Body Mass Index 28.17 12/21/2024 11:39 AM EDT Plan of Treatment Health Maintenance Due Date Last Done Comments CT Colonography 1965 Colonoscopy 1965 Colorectal Cancer Screening 1965 FIT DNA/Cologuard 1965 FIT 1965 FOBT 1965 HIV Screening 1965 Sigmoidoscopy 1965 Hepatitis C Screening 1982 Hepatitis B Vaccines (2 of 3 - 19+ 3-dose series) 06/05/2003 05/08/2003 Pneumococcal Vaccine: 50+ Years (1 of 1 - PCV) 2014 Zoster Vaccines (1 of 2) 2014 COVID-19 Vaccine (4 - season) 2024 05/28/2021, 08/27/2020, 07/30/2020 Influenza Vaccine (#1) 2024 , 08/24/2013, 02/24/2001, Additional history exists Alcohol/Substance Use Screening 04/09/2025 04/09/2024 Depression Screening 04/09/2025 04/09/2024, 04/09/20 24 SDOH Screening 04/09/2025 04/09/2024 Mammogram 05/01/2025 05/01/2024, 02/0 06/2021, 05/14/2021, Additional history exists Tobacco Screening 09/17/2025 09/17/2024 Disability Screening 12/21/2025 12/21/2024 Cervical Cancer Screening 12/02/2026 HPV/Cotest 12/02/2026 12/02/2021, 12/08/2016 Pap Smear 12/02/2026 12/02/2021 Lipid Panel 02/01/2029 02/02/2024, 06/09, 06/24/2020 DTaP/Tdap/Td Vaccines (3 - Td or Tdap) 01/29/2034 01/30/2024, 08/31/2010, 12/10/1992 RSV Patients and Patients Aged 60 years or older (1 - 1-dose 75+ series) 12/20/2039 HIB Vaccines Aged Out No longer eligi ble based on patient's age to complete this topic HPV Vaccines Aged Out No longer eligi ble based on patient's age to complete this topic Hepatitis A Vaccines Aged Out No long er eligible based on patient's age to complete this topic IPV Vaccines Aged Out No longer eligi ble based on patient's age to complete this topic Meningococcal B Vaccine Aged Out No l onger eligible based on patient's age to complete this topic Meningococcal Vaccine Aged Out No yassine elian eligible based on patient's age to complete this topic RSV under 20 months Aged Out No longe r eligible based on patient's age to complete this topic Rotavirus Vaccines Aged Out No longer eligible based on patient's age to complete this topic Procedures Procedure Name Priority Date/Time Associated Diagnosis Comments BI MAMMOGRAM SCREENING TOMOSYNTHESIS BILATERAL Routine 05/01/2024 11:07 AM EST Encounter for screening mammogram for malignant neoplasm of breast LIPID PANEL, STANDARD Routine 02/02/2024 9:08 AM EDT Lipid screening THINPREP IMAGING PAP AND HPV MRNA E6/E7 WITH REFLEX TO HPV 16,18/45 Routine 12/02/2021 12:00 AM EDT from Last 3 Months or Most Recently Relevant to Health Maintenance Results * BI Mammogram Screening Tomosynthesis Bilateral (05/01/2024 11:07 AM EST) Anatomical Region Laterality Modality Breast Bilateral Mammography 05/01/2024 11:0 7 AM EST Narrative 05/09/2024 4:52 PM EST [facility] [address] [place], [place] [address] Mammography Report Signed Patient: Karlene Guy MR#: [id number] : 1965 Acct:[id number] Age/Sex: 58 / F ADM Date: 05/01/24 Loc: HO.MAMMO Attending Dr: Brenda Wise EXECUTIVE ASSOCIATE Ordering Physician: Brenda Wise Results: 1Negat vikash Date of Service: 05/01/24 Follow Up: 1 Year From [facility] ina Mammogram Procedure(s): MM tomosynthesis screening BI Accession Number(s): [id number] cc: Brenda Wise EXECUTIVE ASSOCIATE EXAMINATION: MM SCREENING DIGITAL BREAST TOMOSYNTHESIS, BILATERAL CLINICAL INFORMATION: Screening. Asymptomatic. COMPARISON: Mammography: Comparison is made with available priors TECHNIQUE: Digital breast mammography with tomosynthesis is performed in both the craniocaudal and mediolateral oblique views along with computer-aided detection (CAD). FINDINGS: There are scattered areas of fibroglandular density (ACR BI-RADS breast composition Category b). There are no significant masses, abnormal calcifications, or other abnormalities. MM/MM tomosynthesis screening BI IMPRESSION: No mammographic evidence of malignancy. ASSESSMENT: BI-RADS BI-RADS 1 - Negative RECOMMENDATION: Routine annual mammography screening. 1 year F/U This examination should not preclude the clinical evaluation of a suspicious palpable abnormality. This patient's information was entered into a reminder system with a target due date for their next mammogram. Electronically signed by: Jodi Hull DO 05/09/2024 04:49 PM EST Dictated By: Jodi Hull DO Signed By: <Electronically signed by Jodi Hull DO in OV> 05/09/24 1649 DD/ 1107 TD/TT: 05/01/24 1124 Director Trade: Procedure Note Donotuseinterpreter, Image - 05/09/2024 [facility] [address] [place], [place] [address] Mammography Report Signed Patient: Karlene Guy NMR#: [id number] : 1965Acct:[id number] Age/Sex: 58 / FADM Date: 05/01/24 Loc: HO.MAMMO Attending Dr: Brenda LIZAMA Ordering Physician: Brenda WisePResults: 1Negat vikash Date of Service: 05/01/24Follow Up: 1 Year From Orig inal Mammogram Procedure(s): MM tomosynthesis screening BI Accession Number(s): [id number] cc: Brenda Wise EXAMINATION: MM SCREENING DIGITAL BREAST TOMOSYNTHESIS, BILATERAL CLINICAL INFORMATION: Screening. Asymptomatic. COMPARISON: Mammography: Comparison is made with available priors TECHNIQUE: Digital breast mammography with tomosynthesis is performed in both the craniocaudal and mediolateral oblique views along with computer-aided detection (CAD). FINDINGS: There are scattered areas of fibroglandular density (ACR BI-RADS breast composition Category b). There are no significant masses, abnormal calcifications, or other abnormalities. MM/MM tomosynthesis screening BI IMPRESSION: No mammographic evidence of malignancy. ASSESSMENT: BI-RADS BI-RADS 1 - Negative RECOMMENDATION: Routine annual mammography screening. 1 year F/U This examination should not preclude the clinical evaluation of a suspicious palpable abnormality. This patient's information was entered into a reminder system with a target due date for their next mammogram. Electronically signed by: Jodi Hull DO 05/09/2024 04:49 PM EST Dictated By: Jodi Hull DO Signed By: <Electronically signed by Jodi Hull DO in OV> 05/09/24 1649 DD/ 1107 TD/TT: 05/01/24 1124 Director Trade: Brenda LIZAMA IMG BI PROCEDURES Edited Resul t - Final * (ABNORMAL) Lipid Panel, Standard (02/02/2024 9:08 AM EDT) Triglycerides 105 <150 mg/dL [facility] Comment:Desirable Triglyceri de: less than 150 mg/dLBorderline High Triglyceride 150-199 mg/dLHigh Triglyceride: 200-499 mg/dLVery High Triglyceride: greater than or equal to 5OO mg/dL Cholesterol 228(H) <200 mg/dL [facility] Comment:Desirable Cholestero l: less than 200 mg/dLBorderline High Cholesterol: 200-239 mg/dLHigh Cholesterol: greater than 239 mg/dL LDL Cholesterol Calculated 162(H) <100 mg/dL [facility] Comment:Desirable LDL: less than 100 mg/dLNear Optimal/Above Optimal LDL: 110- 129 mg/dLBorderline High LDL: 130-159 mg/dLHigh LDL: 160-189 mg/dLVery High LDL: greater than or equal to 190 mg/dL HDL Cholesterol 45 >40 mg/dL [facility] Comment:Desirable HDL: great er than 40 mg/dL Note: This HDL assay may give artificially low results in patients with liver disease. Blood Venous blood specimen / Unknown 02/02/2024 9:08 AM EDT 02/02/2024 10:59 AM EDT [facility] LAB BLOOD ORDERABLES Final Resul t [facility] [address] [place] [address] [phone] * THINPREP TIS PAP AND HPV mRNA E6/E7 WITH REFLEX TO HPV 16,18/45 (12/02/2021 12:00 AM EDT) Clinical Information: None given [facility] COMMENT SEE COMMENT [facility] Comment: EXPLANATORY NOTE: The Pap is a screening test for cervical cancer. It is not a diagnostic test and is subject to false negative and false positive results. It is most reliable when a satisfactory sample, regularly obtained, is submitted with relevant clinical findings and history, and when the Pap result is evaluated along with historic and current clinical information. COMMENT: This Pap test has been evaluated with computer assisted technology. [facility] Cytotechnologis t: SEE COMMENT [facility] Comment: GSG, CT(ASCP) CT screening location: [place] [address] HPV nRNA E6/E7 Not Detected Not Detected [facility] Comment: Methodology: Supplier Quality-Mediated Amplification This assay detects E6/E7 viral messenger RNA (mRNA) from 14 high-risk HPV types (16,18,31,33,35,39,45,51,52,56,58,59,66,68). Cervical sources are required for HPV testing. If a vaginal source from a patient who has had a total hysterectomy with removal of cervix was submitted, please contact the testing laboratory for alternative testing options. For additional information, please refer to http://education.Nacuii/faq/WOX854c1 (This link if provided for information/ educational purposes only.) Interpretation/ Result: Negative for intraepithelial lesion or malignancy. [facility] LMP: NONE [facility] Prev. BX: NONE [facility] Prev. PAP: NONE [facility] SOURCE: None given [facility] Statement Of Adequacy: SEE COMMENT [facility] Comment: Satisfactory for evaluation. Endocervical/transformation zone component present. 12/02/2021 Mary Cordoba [facility]OLOGY ORDERABLES Final Result [facility] [address] [place] [phone], from Last 3 Months or Most Recently Relevant to Health Maintenance [facility] Care Teams Meat Slicer Relationship Specialty Start Date End Date Brenda Wise FNP [address] [place] [address] PCP - General Family Medicine 12/07/21
--- OUTSIDE RECORDS SUMMARY | 2024-12-27 10:06 | XMS_ITS | Encounter Summary ---
Author Organization [employer] Address [address] [facility] [address] [place] [address] Care Team Providers Care Chief Of Anesthesiology Name Role Phone Arvindsusanne Brenda DL Primary Care Provider [phone] Encounter Details Date Type Department Care Team ([facility] st Contact Info) Description 04/12/2024 Orders Only [facility] [address] [place], [place] [phone] Provider, MD Trav Social History Tobacco Use [...] on file documented as of this encounter Procedures Procedure [...] documented as of this encounter Care Teams Chief Of Anesthesiology Relationship Specialty Start Date End Date Brenda Wise FNP [address] [place] [address] PCP - General Family Medicine 12/07/21 documented as of this encounter
[2024-12-27 11:53] LABS: MANUAL DIFF FLAG NO
[2024-12-27 11:58] LABS: Hematocrit 41.2 % (37.0-47.0); Hemoglobin 13.4 g/dl (12.0-16.0); Imm Gran Abs Auto 0.02 X10*3/uL (0.00-0.03); Imm Gran Pct Auto 0.3 % (0.0-0.4); Lymphocytes Absolute Auto 1.6 X10*3/uL (1.2-4.9); Mean Corpuscular HGB Conc 32.5 g/dl (31.0-35.0); Mean Corpuscular Hemoglobin 30.0 pg (27.0-33.0); Mean Corpuscular Volume 92.2 fL (80.0-98.0); NRBC Abs Auto 0.000 X10*3/uL (0.0-0.012); NRBC Pct Auto 0.0 /100WBC (0.0-0.2); Platelet Count 280 X10*3/uL (160-400); Red Blood Count 4.47 X10*6/uL (4.20-5.50); White Blood Count 5.8 X10*3/uL (4.8-10.8)
[2024-12-27 12:07] LABS: Alanine Aminotransferase 26 U/L (0-31); Albumin Level 4.2 g/dL (3.5-5.0); Alkaline Phosphatase 90 U/L (39-117); Anion Gap 9 (12-20); Aspartate Amino Transferase 32 U/L (5-31); Blood Urea Nitrogen 19 mg/dL (9-16); Calcium 9.6 mg/dL (8.4-10.2); Carbon Dioxide 28 mmol/L (22-29); Chloride 108 mmol/L (96-108); Cholesterol 205 mg/dL (<200); Estimated Glomerular Filt Rate > 60; HDL Cholesterol 43 mg/dL (>40); Potassium 4.1 mmol/L (3.3-5.1); Sodium 141 mmol/L (135-145); Total Protein 7.3 g/dL (6.5-8.0); Triglycerides 78 mg/dL (<150)
[2024-12-27 12:09] LABS: Hemoglobin A1C 136.0306 umol/L; Total Hemoglobin (HGBA1C) 3504.5651 umol/L
== END 2024-12-27 08:49 | disposition home or self-care (01) ==
LOC: HO.HHCL 08:48
PROVIDERS: PCP Registered Nurse; Visit Provider Registered Nurse
DX: Z00.00 Encounter for general adult medical examination without abnormal findings (principal)
CPT/HCPCS: 36415; 80053; 80061; 83036; 84443; 85025